=== PATIENT | female | born 1955 | race Caucasian/White ===

== ENCOUNTER → 2021-09-04 | Outpatient (CLI) | payer OTHER ==
--- NOTE | 2021-09-04 12:30 | KCIC ---
Coronary calcium score CT chest without contrast History: Mixed hyperlipidemia. Coronary calcium screening. Technique: With retrospective electrocardiogram gating 2.5 mm thick axial reconstructed noncontrast i mages of the chest at the level of the coronary arteries was performed. Images were post processed on a [employer] workstation and calcium score calculated using the modified Agatston Janowitz protocol. PQRS statement: CT scans at this facility use dose reduction including either automated exposure cont rol, iterative reconstructions, and /or weight based radiation dosing via mA and kV modification when appropriate to reduce radiation dose to as low as reasonably achievable. Findings: Total coronary calcium score is 0. This is based on the calcium score of 0 of the left jakub n coronary artery, score of 0 of the left anterior descending artery, score of 0 of the left circumfl ex artery and score of 0 of the right coronary artery. Noncoronary findings demonstrate calcified plaque descending thoracic aorta. Ascending aortogram 3.0 cm. Heart size is normal. Pulmonary vessels and esophagus are unremarkable. Right middle lobe 4 mm no dule image 28. Right lower lobe subpleural 4 mm nodule image 37. Impression: 1. The patient's coronary calcium score is 0. No identifiable coronary atherosclerotic plaque. Very l ow cardiovascular disease risk. 2. 2 small pulmonary nodules at the right lung base each measuring 4 mm in size. Per Fleischner guide lines if the patient has risk factors for malignancy CT chest imaging follow-up in 12 months should b e considered, otherwise no follow-up is necessary. Electronically signed by: Bryson Madsen MD (09/04/2021 12:27 PM) [facility]
== END ==
LOC: KCIC CT 09:58
PROVIDERS: ATTEND Family Medicine
DX: Z13.6 Encounter for screening for cardiovascular disorders (principal); R91.8 Other nonspecific abnormal finding of lung field; I70.0 Atherosclerosis of aorta
CPT/HCPCS: 75571